=== PATIENT | male | born 1960 | race Asian ===

== ENCOUNTER 2024-09-08 10:46 | Emergency (ER) | payer MEDICAID ==
[~2024-09-08] VITALS: Ht 170.2 cm; Wt 75.0 kg
[2024-09-08] MEDS: TraMADol HCL 50 MG TABLET PO ONE (11:51)
[2024-09-08 14:16] VITALS: BP 144/90; PULSE 78; RESP 18; TEMP 98; O2SAT 97
== END 2024-09-08 19:11 | disposition home or self-care (01) ==
LOC: EMS 10:50
DX: M54.50 Low back pain, unspecified (principal); M79.632 Pain in left forearm; R07.89 Other chest pain; V43.52XA Car driver injured in collision with other type car in traffic accident, initial encounter; Y92.410 Unspecified street and highway as the place of occurrence of the external cause
CPT/HCPCS: 71045; 72100; 99284